=== PATIENT | male | born 1975 | race Caucasian/White ===

== ENCOUNTER 2019-12-04 11:04 | Emergency (ER) | payer SELFPAY ==
--- NOTE | 2019-12-04 11:38 | EDM.PDOC ---
ED HPI GENERAL MEDICAL PROBLEM - General Chief Complaint: Skin Complaint Stated Complaint: infection Time Seen by Provider: 12/04/19 11:16 - History of Present Illness INITIAL COMMENTS - FREE TEXT/NARRATIVE: History of present illness: Patient presents with pain to the underside of his pannus for approximately a week he has been try to lose weight and is been sweating more with exercise and he is developed a rash there that is painful he is tried powder and also keeping it dry frequently but is getting worse. He denies any fever chills he also is been having some anxiety issues related to wearing masks and the global situ ation. Review of systems: As per history of present illness and below otherwise all systems reviewed and negative. Past medical history: As per history of present illness and as reviewed below otherwise noncontributory. Surgical history: As per history of present illness and as reviewed below otherwise noncontributory. Social history: No reported history of drug or alcohol abuse. Family history: As per history of present illness and as reviewed below otherwise noncontributory. Physical exam: HEENT: Atraumatic, normocephalic, pupils reactive, negative for conjunctival pallor or scleral icterus, mucous membranes moist, throat clear, neck supple, nontender, trachea midline. Lungs: Clear to auscultation, breath sounds equal bilaterally, chest nontender. Heart: S1S2, regular, negative for clicks, rubs, or JVD. Abdomen: Soft, nondistended, nontender. Negative for masses or hepatosplenomegaly. Negative for costovertebral tenderness. Pelvis: Stable nontender. Genitourinary: Deferred. Rectal: Deferred. Extremities: Atraumatic, negative for cords or calf pain. Neurovascular unremarkable. Neuro: Awake, alert, oriented. Cranial nerves II through XII unremarkable. Cerebellum unremarkable. Motor and sensory unremarkable throughout. Exam nonfocal. Skin: There is erythema and excoriation to the underside of the pannus fold where there are also satellite lesions consistent with a yeast infection. Diagnostics: [] Therapeutics: [] Impression: Yeast infection [] Plan: Nystatin powder instructions on how to keep this clean and dry [] Definitive disposition and diagnosis as appropriate pending reevaluation and review of above. abdominal skin Pain Score (Numeric/FACES): 2 - Related Data Allergies Allergy/AdvReac Type Severity Reaction Status Date / Time erythromycin base Allergy Cannot Verified 12/04/19 11:29 Remember Home Meds: Home Meds Nystatin 60 gm TP TID 14 Days #1 bottle 12/04/19 [Rx] Past Medical History - Past Health History Medical/Surgical History: Denies Medical/Surgical History Psychiatric History: Reports: Anxiety - Past Surgical History GI Surgical History: Reports: Cholecystectomy Social & Family History - Tobacco Use Smoking Status *Q: Never Smoker - Recreational Drug Use Recreational Drug Use: No ED ROS GENERAL - Review of Systems Review Of Systems: See Below ED EXAM, SKIN/RASH Exam: See Below Course - Vital Signs Text/Narrative:: Patient be discharged home with nystatin powder he will be referred to primary care and he will be given information on mental health resources in the community. Last Recorded V/S: Last Vital Signs Temp 35.7 C L 12/04/19 11:27 Pulse 101 H 12/04/19 11:27 Resp 18 12/04/19 11:27 BP 134/93 H 12/04/19 11:27 Pulse Ox 94 L 12/04/19 11:27 Departure - Departure Time of Disposition: 11:37 Disposition: Home, Self-Care 01 Condition: Good Clinical Impression: Candidiasis - Discharge Information *PRESCRIPTION DRUG MONITORING PROGRAM REVIEWED*: Not Applicable *COPY OF PRESCRIPTION DRUG MONITORING REPORT IN PATIENT ZAC: Not Applicable Prescriptions: Nystatin 60 gm TP TID 14 Days #1 bottle Instructions: Rash, Adult Referrals: PCP,None [Primary Care Provider] - Additional Instructions: The following information is given to patients seen in the emergency department who are being discharged to home. This information is to outline your options for follow-up care. We provide all patients seen in our emergency department with a follow-up referral. The need for follow-up, as well as the timing and circumstances, are variable depending upon the specifics of your emergency department visit. If you don't have a primary care physician on staff, we will provide you with a referral. We always advise you to contact your personal physician following an emergency department visit to inform them of the circumstance of the visit and for follow-up with them and/or the need for any referrals to a consulting specialist. The emergency department will also refer you to a specialist when appropriate. This referral assures that you have the opportunity for follow-up care with a specialist. All of these measure are taken in an effort to provide you with optimal care, which includes your follow-up. Under all circumstances we always encourage you to contact your private physician who remains a resource for coordinating your care. When calling for follow-up care, please make the office aware that this follow-up is from your recent emergency room visit. If for any reason you are refused follow-up, please contact the [facility] Emergency Department at and asked to speak to the emergency department charge nurse. [facility] [address] [place] [id number] [address] [address] Sepsis Event Note (ED) - Evaluation Sepsis Screening Result: No Definite Risk - Focused Exam Vital Signs: Vital Signs Temp Pulse Resp BP Pulse Ox 12/04/19 11:27 35.7 C L 101 H 18 134/93 H 94 L
[2019-12-04 11:51] VITALS: BP 144/84; PULSE 90
== END 2019-12-04 11:54 | disposition home or self-care (01) ==
LOC: MW.ED 11:04
DX: B37.9 Candidiasis, unspecified (principal); F41.9 Anxiety disorder, unspecified; Z88.1 Allergy status to other antibiotic agents; Z90.49 Acquired absence of other specified parts of digestive tract
CPT/HCPCS: 99282

== ENCOUNTER 2024-07-17 14:07 | Emergency (ER) | payer SELFPAY ==
[2024-07-17] MEDS: Sodium Chloride 0.9% 1,000 ML IV STA (17:11)
[2024-07-17] MEDS: Sodium Chloride 0.9% 2.5 ML Syringe FLUSH PRN (17:11)
[2024-07-17] MEDS: Sodium Chloride 0.9% 10 ML Syringe FLUSH PRN (17:11)
[2024-07-17] MEDS: Piperacillin/Tazobactam 4.5 GM in Sodium Chloride 0.9% 100 ML IV STA (17:12)
[2024-07-17] MEDS: Acetaminophen 500 MG Tab PO ONE (17:12)
[2024-07-17 17:37] LABS: A/G RATIO 0.8 (0.9-1.6); ALBUMIN 3.5 g/dL (3.4-5.0); BASOPHILS ABSOLUTE AUTO 0.07 K/uL (0.00-0.20); BASOPHILS PERCENT AUTO 0.3 % (0.0-1.0); CALCIUM 8.7 mg/dL (8.5-10.1); CARBON DIOXIDE,CO2 28.2 mmol/L (21.0-32.0); EOSINOPHILS ABSOLUTE AUTO 0.01 K/uL (0.00-0.45); EST CRCL DRUG DOSING (CG) 113.32 mL/min; HEMATOCRIT 40.6 % (42.0-52.0); HEMOGLOBIN 13.9 g/dL (14.0-18.0); IMMATURE GRAN ABSOLUTE AUTO 0.17 K/uL (0.00-0.05); IMMATURE GRAN PERCENT AUTO 0.6 % (0.0-0.4); LYMPHOCYTES ABSOLUTE AUTO 0.85 K/uL (1.00-4.80); LYMPHOCYTES PERCENT AUTO 3.2 % (24.0-44.0); MEAN CORPUSCULAR HEMOGLOBIN 27.8 pg (28.0-32.0); MEAN CORPUSCULAR HGB CONC 34.2 g/dL (32.0-36.0); MEAN CORPUSCULAR VOLUME 81.2 fL (83.0-99.0); MEAN PLATELET VOLUME 11.3 fL (9.4-12.4); MONOCYTES ABSOLUTE AUTO 1.34 K/uL (0.00-0.80); MONOCYTES PERCENT AUTO 5.1 % (0.0-8.0); NEUTROPHILS ABSOLUTE AUTO 23.91 K/uL (1.80-7.70); NEUTROPHILS PERCENT AUTO 90.8 % (41.0-71.0); PLATELET COUNT,PLT 202 K/uL (150-400); POTASSIUM,K 3.9 mmol/L (3.5-5.1); PROTEIN TOTAL,TP 7.8 g/dL (6.4-8.2); WHITE BLOOD CELL COUNT,WBC 26.35 K/uL (3.9-11.3)
[2024-07-17 17:42] LABS: LACTIC ACID 1.6 mmol/L (0.4-2.0)
[2024-07-17 19:15] VITALS: BP 113/56
[2024-07-17 19:52] VITALS: PULSE 101
== END 2024-07-17 19:51 | disposition home or self-care (01) ==
LOC: MW.ED 14:07
DX: L03.116 Cellulitis of left lower limb (principal); Z88.1 Allergy status to other antibiotic agents; Z79.899 Other long term (current) drug therapy; Z75.3 Unavailability and inaccessibility of health-care facilities; Z90.49 Acquired absence of other specified parts of digestive tract
CPT/HCPCS: 36415; 71045; 73560; 73620; 80053; 83605; 85025; 87040; 87651; 93971; 96365; 99284; A9270; J2543; J7030; 99283